=== PATIENT | female | born 1990 ===

== ENCOUNTER 2025-02-02 13:01 | Emergency (ER) | payer BC, SELFPAY ==
[2025-02-02 13:03] VITALS: BP 129/88; PULSE 101; RESP 18; TEMP 36.7; O2SAT 99
--- OUTSIDE RECORDS SUMMARY | 2025-02-02 13:03 | XMS_ITS | Clinical Summary ---
Author Organization [facility] Address [address] [place] [address] Care Team Providers Care Dope Pourer Name Role Phone Christa Swanson MD Primary Care Provider [phone] Christa Swanson MD Unavailable [phone] Allergies Active Allergy Reactions Criticality Noted Date Comments Latex Rash Low 07/27/2013 Sulfa Antibiotics Nausea Low 07/27/2013 Medications ALPRAZolam (XANAX) 0.5 MG tablet Take 0.5 mg by mouth as needed for anxiety Active Active Problems Problem Noted Date Diagnosed Date ACP (advance care planning) 08/06/2023 History of pulmonary embolism 09/16/2020 Atypical squamous cells of u ndetermined significance on cytologic smear of cervix (ASC-US) 03/24/2019 Overview (08/06/2023): [facility] Review: History: 12/2012: LSIL 09/2013: LSIL, COLP neg 04/2014: ASCUS, HPV- 12/2014: NILM, HPV- 01/2016: NILM 02/2019: NILM, HPV- Generalized anxiety disorder 11/24/2018 Mild episode of recurrent major depressive disor lyndsay 11/24/2018 PCOS (polycystic ovarian syndrome) 05/19/2017 Anxiety 09/10/2013 Resolved Problems Problem Noted Date Diagnosed Date Resolved Date Health Prison 08/06/2023 04/24/2024 Indication for care in labor or delivery 07/15/2018 08/06/2023 Vaginal delivery 07/15/2018 08/06/2023 Vaginal delivery 07/29/2013 07/15/2018 Uterine contractions or othe r obstetric complaints 07/27/2013 07/29/2013 Active labor 07/27/2013 07/29/2013 Immunizations Name Administration Dates Next Due DTaP, Unspecified 01/16/1994, 0,05/04/1989,1988,1988 HIB (PRP-T) 07/18/1992 Hepatitis B, Adult (Energix-B/Recombivax HB) 08/16/1997,03/15/1997,01/25/1997 Influenza Vaccine >6 months,quad, PF 08/31/2018 MMR (MMRII) 01/18/2001,02/25/1990 OPV, unspecified 01/16/1994, 0,1988,1987 TD,PF 7+ (Tenivac) 01/14/2004 TDAP Vaccine (Adacel) 05/17/2018 TDAP Vaccine (Boostrix) 06/30/2013 Family History Medical History Relation Comments Hypertension Father Diabetes Maternal Grandmother Depression Mother Hypertension Mother Other Cancer Paternal Grandmother Lung Relation Status Comments Father Maternal Grandmother Mother Paternal Grandmother Social History Tobacco Use Types Packs/Day Years Used Date Smoking Tobacco: Former Cigarettes Q uit: 08/10/2004 Passive Smoke Exposure: Past Smokeless Tobacco: Never Alcohol Use Standard Drinks/Week Comments Not Currently 0 (1 standard drink = 0.6 oz pur e alcohol) PHQ-2 Answer Date Recorded PHQ-2 Score 2 08/28/2019 Adolescent Education Answer Date Record ed Getting School Help Needed Not on file 08/06 Comments No Sex and Gender Information Value Date Recorded Sex Assigned at Not on file Legal Sex Female 4:50 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 HELPER Gender Identity Not on file Sexual Orientation Not on file Last Filed Vital Signs Vital Sign Reading Time Taken Comments Blood Pressure 116/68 08/06/2023 2:06 PM CDT Pulse 85 08/06/2023 2:06 PM CDT Temperature 37.1 C (98.7 F) 08/06/2023 2:06 PM CDT Respiratory Rate 12 08/28/2019 4:55 PM CDT Oxygen Saturation 96% 08/06/2023 2:06 PM CDT Inhaled Oxygen Concentration - - Weight 62.9 kg (138 lb 9.6 oz) 08/06/2023 2:06 P M CDT Height 156.2 cm (5' 1.5) 08/06/2023 2:06 PM CDT Body Mass Index 25.76 08/06/2023 2:06 PM CDT Plan of Treatment Health Maintenance Due Date Last Done Comments ADVANCE CARE PLANNING 1988 ANNUAL REVIEW OF HM ORDERS 1988 CT COLONOGRAPHY 1988 DEPRESSION ACTION PLAN 1988 FIT 1988 FLEX SIG 1988 sDNA (Cologuard) 1988 HEPATITIS C SCREENING 2006 PHQ-9 02/27/2020 08/28/2019 YEARLY PREVENTIVE VISIT 10/13/2022 10/13/20, 09/16/2020, 02/27/2019, Additional history exists DIABETES SCREENING 11/16/2022 11/16/2019, 0 11/16/2019, 08/10/2019, Additional history exists COVID-19 Vaccine ( season) 2024 INFLUENZA VACCINE (#1) 2024 08/31/2018 HPV TEST 02/05/2028 02/27/2019, 02/27/2019 PAP 02/05/2028 02/04/2023, 01/08, 02/27/2019, Additional history exists DTAP/TDAP/TD IMMUNIZATION (7 - Td or Tdap) 05/17/2028 05/17/2018, 06/30/2013, 01/14/2004, Additional history exists COLONOSCOPY 10/25/2033 10/25/2023 COLORECTAL CANCER SCREENING 10/25/2033 ZOSTER IMMUNIZATION (1 of 2) 2038 HEPATITIS B IMMUNIZATION Completed 997, 03/15/1997, 01/25/1997 HIV SCREENING Completed 12/01/2017, 12/13/2012 HPV IMMUNIZATION Aged Out No longer e ligible based on patient's age to complete this topic MENINGITIS IMMUNIZATION Aged Out No l onger eligible based on patient's age to complete this topic Pneumococcal Vaccine: Pediatrics (0 to 5 Years) and At-Risk Patients (6 to 49 Years) Aged Out No longer eligible based on patient's age to complete this topic Procedures Procedure Name Priority Date/Time Associated Diagnosis Comments COLONOSCOPY - HIM SCAN Routine 10/25/2023 PAP SMEAR - HIM PATIENT REPORTED Routine 02/04/2023 HEMOGLOBIN A1C Routine 11/16/2019 9:19 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 MECHANIC HELPER Class 1 obesity due to excess calories without serious comorbidity with body mass index (BMI) of 31.0 to 31.9 in adult ABSTRACT HPV (HIM EXTERNAL RESULT) Routine 02/27/2019 HIV ANTIGEN ANTIBODY COMBO Routine 12/01/2017 from Last 3 Months or Most Recently Relevant to Health Maintenance Results * Colonoscopy - HIM Scan (10/25/2023) us Provider Outside PROCEDURES Final Result * PAP Smear - HIM Patient Reported (02/04/2023) PAP Smear - HIM Patient Reported Negative 02/04/2023 us Provider Outside LABORATORY Final Result * Hemoglobin A1c (11/16/2019 9:19 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 MECHANIC HELPER) Hemoglobin A1C 5.0 0 - 5.6 % 11/16/2019 9:38 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 MECHANIC HELPER [facility] Comment: Normal <5.7% Prediabetes 5.7-6.4% Diabetes 6.5% or higher - adopted from ADA consensus guidelines. Blood specimen (specimen) 11/16/2019 9:19 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 MECHANIC HELPER 11/16/2019 9:24 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 MECHANIC HELPER us Dalia Alford PA-C LAB - BLOOD ORDERAB LES Final Result [facility] [address] [facility] [address] [place] [address] * ABSTRACT HPV-NO CHARGE (02/27/2019) HPV Abstract See Scanned Document [facility] 02/27/2019 Narrative [facility] - 02/27/2019 Care Everywhere, [facility] us Provider Outside LAB - HIM EXTERNAL RESULT Final Result [facility] [address] [place], [place] [address] [phone] * HIV Antigen Antibody Combo (12/01/2017) HIV Antigen Antibody Combo Nonreactive Blood specimen (specimen) us Patient Reported LAB - BLOOD ORDERABLES Final Re sult from Last 3 Months or Most Recently Relevant to Health Maintenance Insurance NONE (Work) [address] [id number] [facility] Care Teams Dope Pourer Relationship Specialty Start Date End Date Christa Swanson MD [address] [facility] [address] [place] [address] PCP - General Family Medicine 07/21/23 Christa Swanson MD [address] [facility] [address] [place] [address] Assigned PCP 08/14/23
--- OUTSIDE RECORDS SUMMARY | 2025-02-02 13:03 | XMS_ITS | Encounter Summary ---
Author Organization [facility] Address [address] [place] [address] Care Team Providers Care Automation Machine Builder Name Role Phone Christa Swanson MD Primary Care Provider [phone] Christa Swanson MD Unavailable [phone] Encounter Details Date Type Department Care Team (Late st Contact Info) Description 08/11/2023 MyC Medical Advice [facility] [address] [place] [id number] Christa Swanson MD [address] [place] [address] [address] [place] [address] Social History Tobacco Use Types Packs/Day Years [...] on file 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 Unable to assess 08/06/2023 1:37 PM CDT documented as of this encounter Miscellaneous Notes * Telephone Encounter - Christa Swanson MD - 08/13/2023 11:29 AM CDT See mychart message from patient, please send ct report to her canvas marker. documented in this encounter Plan of Treatment Not on file documented as of this encounter Visit Diagnoses Not on filedocumented in this encounter Additional Health Concerns Assessment Noted Time PHQ-9 Depression Total Score: 14 019 6:03 PM CDT documented as of this encounter Care Teams Automation Machine Builder Relationship Specialty Start Date End Date Christa Swanson MD [address] [address] PCP - General Family Medicine 07/21/23 Christa Swanson MD [address] [address] Assigned PCP 08/14/23 documented as of this encounter
--- OUTSIDE RECORDS SUMMARY | 2025-02-02 13:03 | XMS_ITS | Clinical Summary ---
Author Organization [facility] Address [address] [place] [address] Care Team Providers Care Machine Skiver Name Role Phone Sabiha Damico MD Primary Care Provider Source Comments You are receiving this document as you are listed as the primary care provider,follow-up provider, or the patient has been referred to you for consultation.This is in compliance with the Medicare andMedicaid EHR Incentive Program,which states Providers who transition their patient to another setting of careor provider of care or refers their patient to another provider of care shouldprovide summary care record for each transition of care or referral. [facility] Allergies Active Allergy Reactions Criticality Noted Date Comments Latex Low 02/04/2009 PN: LW Reaction: swelling, irritation- just slight irritation per patient report. Sulfa Antibiotics 02/12/2003 PN: LW Reaction: GI Upset Sulfasalazine Nausea Low 07/27/2013 Medications * This document contains information received from the source organization and may not represent a complete record from that organization. drug not in computer Active Multiple Vitamins-Minerals (EQ MULTIVITAMINS ADULT GUMMY OR) Acti ve Ferrous Sulfate 324 (65 Fe) MG TBEC Take 325 mg by mouth two times a day. Active Docusate Sodium 100 MG Take 100 mg by mouth. 07/17/20 18 Active acetaminophen (TYLENOL) 500 MG tablet Take 2 Tablets by mouth 4 times daily as needed for Pain. Maximum acetaminophen dose is 4000 mg in 24 hours 100 Tablet 11 08/10/20 19 Active Ascorbic Acid (VITAMIN C-JOE HIPS) 1000 MG tablet Take 1,000 mg by mouth daily. Active Nutritional Supplements (VITAMIN D MAINTENANCE OR) Acti ve medroxyPROGESTERo ne (PROVERA) 10 MG tabletIndications :PCOS (polycystic ovarian syndrome) (HRC) Take 1 tab daily for 5-10 days if you do not get your period monthly. 10 Tablet 11 09/16/20 20 Active Additional Information Patient not taking.Reported on 10/13/2021 ALPRAZolam (XANAX) 0.5 MG tabletIndications :Anxiety (HRC) Take 1 Tablet by mouth at bedtime as needed for Anxiety. 30 Tablet 09/16/20 20 Active Active Problems Problem Noted Date Diagnosed Date History of pulmonary embolism 09/16/2020 Atypical squamous cells of u ndetermined significance on cytologic smear of cervix (ASC-US) 03/24/2019 Overview (03/24/2019): [facility] Review: History: 12/2012: LSIL 09/2013: LSIL, COLP neg 04/2014: ASCUS, HPV- 12/2014: NILM, HPV- 01/2016: NILM 02/2019: NILM, HPV- Generalized anxiety disorder 11/24/2018 Mild episode of recurrent major depressive disor lyndsay 11/24/2018 PCOS (polycystic ovarian syndrome) 05/19/2017 Anxiety 09/10/2013 Resolved Problems Problem Noted Date Diagnosed Date Resolved Date On continuous oral anticoagulation 08/14/2019 09/16/2020 Acute pulmonary embolism 08/09/201907/2020 Back pain affecting pregnanc y in third trimester 07/14/2018 08/31/2018 Abnormal glucose complicating 05/31/2018 08/31/2018 Antepartum anemia 05/31/2018 09/16/2020 Supervision of other normal , antepartum 02/10/2018 08/31/2018 Contraceptive surveillance 09/28/2013 0 01/08/2016 , supervision, normal, first 02/10/2013 09/10/2013 Dysmenorrhea 05/02/2004 09/15/2005 Overview (06/11/2016): LW Onset: [id number] Immunizations Immunization Administration Dates Next Due DTP 01/16/1994, 0,05/04/1989,1988,1988 DTaP, Unspecified Formulation 01/16/1994 ,03/09/1990,05/04/1989,1988,1988 HepB Adult (Engerix-B, 20+ y rs, 3 dose series) 08/16/1997,03/15/1997,01/25/1997 Hib (ActHIB) 07/18/1992 Influenza IIV4 (Quadrivalent ) 0.5mL (46144) 08/31/2018 MMR 01/18/2001,02/25/1990 OPV, Trivalent (Orimune or tOPV) 994,03/09/1990,1988,1987 OPV, Unspecified Formulation 01/16/1994, 03/09/1990,1988,1987 TDAP (BOOSTRIX) 06/30/2013 Td 01/14/2004 Td (7+ yrs) 01/14/2004 Tdap 05/17/2018 Family History Medical History Relation Name Comments Hypertension Father Hypertension Mother Alzheimer's Maternal Grandmother Dementia Maternal Grandmother Diabetes Maternal Grandmother Heart Disease Paternal Grandfather Cancer Paternal Grandmother Cancer, Lung Paternal Grandmother Relation Name Status Comments Father Alive Mother Alive Brother Alive Maternal Grandfather Alive Maternal Grandmother Paternal Grandfather Paternal Grandmother Social History Tobacco Use Types Packs/Day Years Used Date Smoking Tobacco: Former Cigarettes Smokeless Tobacco: Never Tobacco Cessation:Counseling Given: No Comments:Smoking History Packs/day: 1/2. 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 Not on file Not on file Not o n file Last Filed Vital Signs Vital Sign Reading Time Taken Comments Blood Pressure 112/71 10/13/2021 7:37 AM COOLING SYSTEM OPERATOR Pulse 78 10/13/2021 7:37 AM COOLING SYSTEM OPERATOR Temperature 36.7 C (98.1 F) 08/06/2020 12:24 PM CDT Respiratory Rate 16 08/06/2020 12:24 PM CDT Oxygen Saturation 99% 08/06/2020 12:24 PM CDT Inhaled Oxygen Concentration - - Weight 66.2 kg (146 lb) 10/13/2021 7:37 AM COOLING SYSTEM OPERATOR Height 158 cm (5' 2.21) 10/13/2021 7:37 AM COOLING SYSTEM OPERATOR Body Mass Index 26.53 10/13/2021 7:37 AM COOLING SYSTEM OPERATOR Plan of Treatment Health Maintenance Due Date Last Done Comments Hep C Screening (Preventive Services) 1988 Adult Preventive Visit 10/13/2023 , 09/16/2020, 02/27/2019, Additional history exists Cervical Cancer Screening 02/28/20242018, 02/27/2019, 01/07/2016, Additional history exists COVID-19 Vaccine ( season) 2024 Influenza (#1) 2024 08/31/2018 DTaP/Tdap/Td (7 - Tdap) 05/17/2028 05/17/20 18, 06/30/2013, 01/14/2004, Additional history exists Zoster/Shingles (1 of 2) 2038 Hib Completed 07/18/1992 IPV (Polio) Completed 01/16/1994, 01/06, 03/09/1990, Additional history exists HepB Completed 08/16/1997, 06/1997, 01/25/1997 HIV Screening (Preventive Services) Completed 12/01/2017, 12/13/2012 HPV Vaccine Aged Out No longer eligi ble based on patient's age to complete this topic HepA Aged Out No longer eligi ble based on patient's age to complete this topic MCV4 Aged Out No longer eligi ble based on patient's age to complete this topic Meningococcal B Aged Out No longer el igible based on patient's age to complete this topic Pneumococcal Aged Out No longer eligi ble based on patient's age to complete this topic Procedures Procedure Name Priority Date/Time Associated Diagnosis Comments CYTOLOGY (PAP) Routine 02/27/2019 1:56 PM CDT Pap smear for cervical cancer screening HIV-1 P24 AND HIV-1/HIV-2 ANTIBODIES Routine 12/01/2017 8:41 AM COOLING SYSTEM OPERATOR Screening examination for venereal disease from Last 3 Months or Most Recently Relevant to Health Maintenance Results * PAP Test (02/27/2019 1:56 PM CDT) Case Report Pap Case: [id number] Authorizing Provider: Prema Del Rosario, Collected: 02/27/2019 01:56 PM OPAL RED Ordering Location: [facility] Received: 02/27/2019 02:25 PM Services-PROOF COIN COLLECTOR First Screen: Tenisha Macias CT (ASCP) Specimen: Pap Test, Routine, Cervix/Endocervix 03/03/2019 2:25 PM CDT [facility] Pap Specimen Adequacy Satisfactory for evaluation, endocervical/zendejas sformation zone component absent. 03/03/2019 2:25 PM CDT [facility] Pap Interpretation Negative for intraepithelial lesion or malignancy (NILM). 03/03/2019 2:25 PM CDT [facility] at 1425 CDT Gross Description The specimen is received in SurePath fixative and properly labeled. 1 Pap-stained SurePath slide is prepared. 03/03/2019 2:25 PM CDT [facility] Pap Disclaimer The Pap test is a screening test designed to aid in the detection of cervical cancer and its precursor lesions. It is not a diagnostic procedure and should not be used as the sole means of detecting cervical cancer. Both false-positive and false-negative reports may occur. 03/03/2019 2:25 PM CDT [facility] Embedded Images 9 2:25 PM CDT [facility] Other Specimen Type ENTIRE ENDOCERVIX / Unknown 02/27/2019 1:56 PM CDT 02/27/2019 2:25 PM CDT Comment:LMP: Patient's last menstrual period was 02/19/2019 (exact date). Prema Del Rosario APRN, CNP LAB PATHOLOGY Fi nal Result [facility] [address] * LAB HIV-1 p24 AND HIV-1/HIV-2 ANTIBODIES (12/01/2017 8:41 AM COOLING SYSTEM OPERATOR) HIV-1 p24 Ag and HIV-1/HIV-2 Ab Nonreactive Nonreactive PN SOFT 12/01/2017 8:41 AM COOLING SYSTEM OPERATOR 12/01/2017 12:57 PM COOLING SYSTEM OPERATOR Narrative PN SOFT - 12/01/2017 3:11 PM COOLING SYSTEM OPERATOR Performed at [facility] [id number] [place] [address] CLIA number [id number] us Prema Del Rosario AMBULATORY TECHNOLOGIST, NETWORK CONTRACT MANAGER LAB_1 Fi nal Result PN SOFT [address] [place] [address] from Last 3 Months or Most Recently Relevant to Health Maintenance Insurance BCBS OUT OF STATE Advance Directives * Full Code (Latest Code Status on File) Date Activated Date Inactivated Comments 08/09/2019 8:17 PM 08/10/2019 8:13 PM Care Teams Machine Skiver Relationship Specialty Start [place] [address] [place] [address] PCP - General 02/09/11
--- OUTSIDE RECORDS SUMMARY | 2025-02-02 13:04 | XMS_ITS | Clinical Summary ---
Author Organization [facility] Address [address] [place] [address] Care Team Providers Care Burlap Roll Coverer Name Role Phone Brandie Naranjo DO Primary Care Provider [phone] Allergies Active Allergy Reactions Criticality Noted Date Comments Latex Rash Low 07/27/2013 Sulfasalazine Nausea Only Low 07/27/2013 Medications NUVARING vaginal ring PLEASE SEE ATTACHED FOR DETAILED DIRECTIONS 4 9 Active multivitamin chew Active escitalopram oxalate (LEXAPRO) 10 mg tabletIndicatio ns:Generalized anxiety disorder,Mild episode of recurrent major depressive disorder TAKE ONE TABLET BY MOUTH EVERY MORNING 90 tablet 9 Active Active Problems Problem Noted Date Diagnosed Date PCOS (polycystic ovarian syndrome) 11/24/2018 Mild episode of recurrent major depressive disor lyndsay 11/24/2018 Generalized anxiety disorder 11/24/2018 Immunizations Immunization Administration Dates Next Due DTP 01/16/1994, 0,05/04/1989,1988,10/09 HIB PRP-T (ActHIB,Hiberix) 07/18/1992 Hepatitis B (Adult) 08/16/1997,03/15/1997,1996 Influenza, IIV4 08/31/2018 MMR 01/18/2001,02/25/1990 Oral Polio Vaccine 01/16/1994,03/09/1990, 989,1988 Td (Age >=7 Years) 01/14/2004 Tdap 05/17/2018,06/30/2013 Social History Tobacco Use Types Packs/Day Years Used Date Smoking Tobacco: Never Smokeless Tobacco: Never Tobacco Cessation:Counseling Given: Yes Alcohol Use Standard Drinks/Week Comments Yes 0 (1 standard drink = 0.6 oz pur e alcohol) occassional PHQ-2 Answer Date Recorded PHQ-2 Score 2 01/24/2019 Comments No Sex and Gender Information Value Date Recorded Sex Assigned at Not on file Legal Sex Female 11:41 AM BUTTERMAKER Gender Identity Not on file Sexual Orientation Not on file Obstetrics History Last Filed Vital Signs Vital Sign Reading Time Taken Comments Blood Pressure 100/70 12/15/2018 11:24 AM BUTTERMAKER Pulse 66 12/15/2018 11:24 AM BUTTERMAKER Temperature - - Respiratory Rate - - Oxygen Saturation - - Inhaled Oxygen Concentration - - Weight 69.5 kg (153 lb 4.8 oz) 12/15/2018 11:24 AM BUTTERMAKER Height 157.5 cm (5' 2) 12/15/2018 11:24 AM BUTTERMAKER Body Mass Index 28.04 12/15/2018 11:24 AM BUTTERMAKER Plan of Treatment Health Maintenance Due Date Last Done Comments HIV for age 15-65 2003 Hepatitis C screening for age 18-79 2006 Pap test for age 21-65 2009 BMI (ht and wt on same day) for age 18+ 12/15/2019 12/15/2018, 11/24/2018 Depression screening for age 12+ 01/21/2020 01/20/2019, 12/15/2018, 11/25/2018, Additional history exists COVID-19 vaccine series (2023- season) 2024 Influenza Vaccine (#1) 2024 08/31/2018 Tetanus booster 05/17/2028 05/17/2018, 06/09, 01/14/2004 Tdap Completed 05/17/2018, 06/30/2013 Pneumococcal series for age 6-49 Aged Out No longer eligible based on patient's age to complete this topic Insurance [facility] Care Teams Burlap Roll Coverer Relationship Specialty Start [place] [address] [place] [address] PCP - General Family Practice 02/07/19
--- OUTSIDE RECORDS SUMMARY | 2025-02-02 13:04 | XMS_ITS | Data Portability ---
Author Organization [facility], [facility] Address [address] [place] [address] Care Team Providers Care Procurement Analyst Name Role Phone [facility] Primary Care Provid er Assessment No assessment recorded. Plan of Treatment Reminders Order Date Submit Date Provider Last Modified By Organization Details Last Modified Time Details Appointments None recorded. Lab None recorded. Referral None recorded. Procedures None recorded. Surgeries None recorded. Imaging XR, kidney + ureter + bladder [id number] [email or web address] Not available 15:07:35 Medication Orders None recorded. Patient TargetsNo targets recorded. Patient InstructionsNo instructions recorded. Reason for Referral None Reported. Problems Name Problem SNOMED Code Status Onset Date Resolution Date Notes Provider Name and Address Organization Details Recorded Time Kidney stone [id number] Active 023 Natanael Bartlett MD [address] [place] [address],[address], [place], [address] , [facility] 09/20/2023 16:32:28 Problem Notes None recorded. Medical Equipment None Reported. Allergies No known drug allergies Medications Name Sig Start Date Stop Date Status Note LastModified by Organization Details LastModified Time tretinoin 0.025 % topical cream APPLY A THIN LAYER TO FULL FACE 2 NIGHTS PER WEEK, INCREASE NIGHTLY TOLERATED , FOLLOW WITH [facility] ER 09/20 completed Not Available Not Available Not Available prednisone 20 mg tablet TAKE ONE TABLET BY MOUTH EVERY DAY 09/20 completed Not Available Not Available Not Available alprazolam 0.5 mg tablet TAKE ONE TABLET BY MOUTH EVERY DAY NEEDED FOR ANXIETY ATTACK active Not Available Not Available No t Available neomycin-po lymyxin-dex ameth 3.5 mg/mL-10,00 0 unit/mL-0.1 % eye drops Use 1 drop into the eye(s) every 8 hours for 5 days* 09/20 completed Not Available Not Available Not Available Vitals Date Recorded Body height Body mass index (BMI) Body weight Provider Name and Address Organization Details Last Updated DateTime 09/20/2023 154.94 cm 25.5 kg/m2 82512.97 g Marlon Grey [facility] 09/20/2023 16:01:07 Social History Question Answer Notes LastModified by Organizat ion Details LastModified Time Tobacco Smoking Status Former Smoker Marlon Grey [facility], [facility] 09/20/2023 16:02:14 What Is Your Level Of Alcohol Consumption? Moderate Information not available 09/20/2023 What Is Your Level Of Caffeine Consumption? Moderate Information not available 09/20/2023 When Did You Quit Smoking? 1-5yearssincel astcigarette Information not available 09/20/2023 What Was The Date Of Your Most Recent Tobacco Screening? 09/20/2023 Information not available 09/20/2023 Sex: Unknown Functional Status None recorded. Mental Status None recorded. Family History Relationship Description Onset Age of this Age Resolved Age Notes LastModified by Organization Details LastModified Time Father Kidney stone [email or web address] Not avail able 09/20/2023 16:01:52 Maternal Grandmother Kidney stone [email or web address] Not available 09/20/2023 16:01:52 Medical History Condition Response Other N High Blood Pressure N Kidney Stones Y Lung Disease N Depression N GERD/Acid Reflux N Sexually Transmitted Infection N Diabetes N Bleeding Disorder N Cancer N High Cholesterol N Heart Disease N Gynecological History Statement/Question Response Sexually Active? Y Obstetrics History GPAL:G 2 P 0 0 0 0 Past Encounters Encounter ID Performer Location Encounter Start Date Encounter Closed Date Diagnosis/Indication Diagnosis SNOMED-CT Code Diagnosis ICD10 Code Diagnosis Note [id number] Natanael Bartlett MD [facility] [address] [place] [address] 09/20/2023 15:53:38 09/22/2023 11:50:29 Kidney stone 36238085 N20.0 - Asymptomat ic, approximat paulo 5 to 6 mm stone in the anterior mid right kidney that is possibly intraparen chymal.-Gi beny the location, I did not recommend surgery at this time, especially given the fact that she does not have any symptoms. I did recommend close radiograph ic surveillan ce with another KUB x-ray in 6 months. We also discussed the possibilit y of metabolic evaluation -Return to clinic 6 months with KUB, sooner as needed Health Concerns Section Related Observation LastModified by Organization Detai ls LastModified Time None Recorded Concern Status LastModified by Organization Details LastModified Time None Recorded Advance Directives Directive None Recorded Payers Encounter Date Sequence Insurance Name Policy Number Policy Parsons Covered Member ID Parsons Member ID Guarantor Name 09/20/2023 1 GEO-ANNETTA: GEO LITTLEJOHN (PPO) [id number] Sacha A Lendway [id number] Cally A [employer] Notes Date Note Type Note Provider Name and Address Organization Details Recorded Time 09/20/2023 text/html New patient refe rred for kidney stone. Primary complaint is chronic pelvic pain for the past 1 to 2 years. She had a pelvic ultrasound that was normal. She has consultation pending with [facility]. No prior kidney stones. No history of flank pain. I reviewed the most recent clinic notes from Dr. Swanson with [facility] physicians dated 08/06/2023. I reviewed the CT scan images and report from [facility] dated 08/11/2023. She has an incidental 7 mm nonobstructing stone in the right anterior mid kidney. The stone appears to be intraparenchymal. It is also visible on the wound nurse images and appears smaller than 7 mm. Natanael Bartlett MD [address], [place], [address], [facility] 09/20/2023 16:34:02 OBGyn Episode No OBEpisode recorded.
[2025-02-02 14:44] LABS: Appearance Urine Clear (Clear); Bilirubin Urine Negative (Negative); Blood Urine Negative (Negative); Color Urine Yellow (Yellow); Glucose Urine Negative (Negative); Ketones Urine Negative (Negative); Leukocyte Esterase Urine Negative (Negative); Nitrite Urine Negative (Negative); Protein Urine Negative (Negative); Specific Gravity Urine <= 1.005 (1.000-1.030); Urobilinogen Urine 0.2 (0.2-1.0)
[2025-02-02 14:47] LABS: Ur HCG Qualitative* Negative (Negative)
--- NOTE | 2025-02-02 14:49 | CRLHL7_ITS ---
For Patients: As a result of the Cures Act, medical imaging exams and procedure reports are released immediately into your electronic medical record. You may view this report before your referring provider. If you have questions, please contact your health care provider. INDICATION: Right abdominal pain. TECHNIQUE: CT abdomen and pelvis acquired with 69 cc of Isovue 370 IV contrast. COMPARISON: None. FINDINGS: Lower chest: Unremarkable. Liver: Unremarkable. Spleen: Unremarkable. Pancreas: Unremarkable. Gallbladder and bile ducts: No calcified stones or biliary ductal dilatation. Kidneys: Nonobstructing 5 mm right renal stone. No ureteral stones or hydronephrosis. No suspicious lesion. Adrenal glands: Unremarkable. GI tract: Mild circumferential thickening and pericolonic stranding of the distal ascending colon near the hepatic flexure, for example on axial image 49 of series 2. There is a possible small posteriorly directed diverticula. No pericolonic fluid collection. No free intraperitoneal gas. No bowel obstruction. Normal appendix. Lymph nodes: No pathologic lymphadenopathy. Vascular structures: Unremarkable. Pelvic Organs: Collapsing cyst in the right ovary measures 15 mm. Trace pelvic free fluid. Uterus, adnexal regions and bladder as imaged is otherwise unremarkable. Bones: No acute or suspicious osseous abnormality. IMPRESSION: 1. Colitis of the distal ascending colon near the hepatic flexure may reflect acute right-sided diverticulitis. However, other etiologies for colitis are not entirely excluded. No evidence of abscess or pippa perforation. 2. Nonobstructing right nephrolithiasis. Dictated by Zeb Adams MD @ 02/02/2025 3:43:29 PM Please note that all CT scans at this facility use dose modulation, iterative reconstruction, and/or weight-based dosing when appropriate to reduce radiation dose to as low as reasonably achievable. Dictated by: Zeb Adams MD @ 02/02/2025 15:43:39 (Electronically Signed)
[2025-02-02 14:54] LABS: RBC Urine 0-2 (0-2); WBC Urine 0-2 (0-5)
[2025-02-02 14:55] LABS: Bacteria Urine Many; Squamous Epithelial Cell Urine Few (None-Few)
--- NOTE | 2025-02-02 15:03 | ED_ITS ---
HPI - General Adult General Date Seen: 02/02/25 Chief complaint: Abdominal Pain Stated complaint: Abdominal pain Time Seen by Provider: 02/02/25 14:31 History of Present Illness HPI narrative: Patient is a 34-year-old woman here for evaluation of abdominal pain. She says yesterday she had some generalized abdominal pain that she related to cramping, she is expecting her period this week and she often gets some constipation cramping in a couple days before she starts her period. However, today the cramping is gone and she has residual localized right-sided abdominal pain in the right mid upper abdomen. She denies nausea vomiting, had some constipation but took a laxative yesterday and that is improved. No diarrhea or bloody stools. No urinary symptoms. She has had a normal appetite today. She has had a couple of pregnancies, denies other gynecologic history. No abdominal surgeries. No fevers. She does not smoke or drink. Denies other medical history. No specific suspicion of . Related Data Home Medications ?Medication ?Instructions ?Recorded ?Confirmed alprazolam 0.5 mg tablet 0.5 mg PO DAILY PRN anxiety attack 02/02/25 02/02/25 bupropion HCl 150 mg tablet,12 hr 150 mg PO DAILY 02/02/25 02/02/25 sustained-release (Wellbutrin SR) tretinoin 0.025 % topical cream applic topical 02/02/25 Allergies Allergy/AdvReac Type Severity Reaction Status Date / Time Sulfa (Sulfonamide Allergy Unknown Verified 04/03/23 09:22 Antibiotics) Review of Systems Status of ROS: Reports: 10 or more systems reviewed and unremarkable except as noted in History and below [facility] Social History Smoking Status: Former smoker What tobacco products do you use: cigarettes Smoking quit date/years: <= 15 years ago Do you use any of these nicotine containing products: None How often do you have a drink containing alcohol: 2-4 times a month AUDIT-C Alcohol total score: 2 Non-prescribed substance use: denies use Exam Narrative: Exam Narrative: Vital signs reviewed In general, alert, nontoxic middle-age woman. She looks comfortable. Head: Normocephalic, atraumatic. Eyes: Sclera clear. Pupils equal and reactive. ENT: Mucous membranes moist. Neck: Supple without adenopathy. Heart: Regular rate and rhythm without murmur. Lungs: Clear. No increased work of breathing, crackles or wheezes. Abdomen: Abdomen is soft, nondistended. She has localized tenderness primarily in the right mid abdomen, she has a negative Davis sign, she does not have tenderness exactly over McBurney's point nor does she have any pelvic tenderness. She does not have any rebound guarding or rigidity. Left abdomen is entirely nontender. Extremities: Well perfused, pulses intact. No significant edema. Neurologic: Alert, conversant. Speech fluent, face symmetric. Moves all extremities equally. Skin: Warm, dry well perfused. Affect: Normal. Const: Vital Signs, click to edit/add: Vital Signs - 24 hr 02/02/25 13:03 02/02/25 15:30 Temperature 98.0 F 96.8 F L Pulse Rate [Pulse Oximeter] 101 H 79 Respiratory Rate 18 18 Blood Pressure [Ri ght Upper Arm] 129/88 124/70 Pulse Oximetry 99 98 Oxygen Delivery Me thod Room Air Room Air Course Course ED Course: A UA and UPT was ordered in triage. The urinalysis shows bacteria but otherwise is negative, 0-2 red cells 0-2 white cells. test is negative. Ov bonill her abdominal exam is fairly benign, story is somewhat suggestive of appendicitis although exam is less definitive, she says she has had a normal appetite today and had a protein bar in the waiting room prior to coming in. Other diagnostic considerations would be biliary colic or cholecystitis, pancreatitis, diverticulitis, ovarian cyst, kidney stone among others. Doubt ectopic given negative test UTI given the negative UA. Overall, given the absence of significant tenderness over the gallbladder negative Davis's, I think CT scan will be the most efficient initial imaging test. Labs and CT are pending at this time. She declines the need for anything for pain at this time. Labs reviewed and reassuring, white blood cell count mildly elevated at 13. I reviewed her CT scan, I noted small right ovarian cyst but no significant free fluid, I did not see evidence of appendicitis, gallbladder looked normal. Radiology read is of some thickening of the hepatic flexure and possibly a small diverticuli there, they think this most likely represents diverticulitis although other causes of colitis are not ruled out. In discussing this with the patient, she says she actually had been having some pelvic pain awhile ago, she said they ended up doing a colonoscopy as her grandma has a history of polyps. She says they noted diverticulosis but no other acute findings. As such, I think is more likely this represents diverticulitis, but discussed with her she is not improving she should see GI again. Otherwise, primary care follow-up next week, I prescribed Augmentin. Discussed reasons to return such as worsening pain, fevers, chills, vomiting. Vital Signs Vital signs: Initial Vital Signs Temperature 98.0 F 02/02/25 13:03 Temperature Source Temporal Artery Scan 02/02/25 13:03 Pulse Rate 101 H 02/02/25 13:03 Pulse Rhythm Regular 02/02/25 13:03 Respiratory Rate 18 02/02/25 13:03 Blood Pressure 129/88 02/02/25 13:03 Blood Pressure Mean 101 02/02/25 13:03 Blood Pressure Position Standing 02/02/25 13:03 Pulse Oximetry 99 02/02/25 13:03 Oxygen Delivery Method Room Air 02/02/25 13:03 Vital Signs Temperature 98.0 F 02/02/25 13:03 Pulse Rate 101 H 02/02/25 13:03 Respiratory Rate 18 02/02/25 13:03 Blood Pressure 129/88 02/02/25 13:03 Pulse Oximetry 99 02/02/25 13:03 Oxygen Delivery Method Room Air 02/02/25 13:03 Temperature 96.8 F L 02/02/25 15:30 Pulse Rate 79 02/02/25 15:30 Respiratory Rate 18 02/02/25 15:30 Blood Pressure 124/70 02/02/25 15:30 Pulse Oximetry 98 02/02/25 15:30 Oxygen Delivery Method Room Air 02/02/25 15:30 Medications Administered Medications: Discontinued Medications Generic Name Dose Route Start Last Admin Trade Name Freq PRN Reason Stop Dose Admin Acetaminophen 1,000 mg 02/02/25 14:49 02/02/25 15:24 Acetaminophen 500 Mg Tablet PO 02/02/25 14:50 1,000 mg ONCE ONE Administration Sodium Chloride 500 mls @ 500 mls/hr 02/02/25 14:49 02/02/25 16:07 0.9 % Sodium Chloride 500 Ml IV 02/02/25 15:48 Infused .Q1H ONE Infusion Medical Decision Making Lab Data Lab results reviewed: Yes I reviewed the patient's lab results Labs: Lab Results 02/02/25 02/02/25 Range/Units 14:35 15:00 WBC 13.41 H (4.50-11.00) K/uL RBC 4.30 (4.00-5.20) m/uL Hgb 13.3 (12.0-16.0) gm/dL Hct 39.0 (33.0-51.0) % MCV 91 (80-100) fL MCH 31 (26-34) pg MCHC 34 (32-36) gm/dL RDW Coeff of Garrett 12.3 (11.5-15.5) % Plt Count 160 (140-440) K/uL Neut % (Auto) 81.7 H (42.0-72.0) % Lymph % (Auto) 9.5 L (20-44) % Ellsworth % (Auto) 7.3 (0.0-11.0) % Eos % (Auto) 0.4 (0.0-7.0) % Baso % (Auto) 0.1 (0.0-3.0) % Neut # (Auto) 11.00 H (1.7-7.0) K/uL Lymph # (Auto) 1.30 (0.90-2.90) K/uL Ellsworth # (Auto) 1.00 H (0.00-0.90) K/UL Eos # (Auto) 0.10 (0.00-0.50) K/uL Baso # (Auto) 0.00 (0.00-0.30) K/uL Abs Immat Gran (auto) 0.10 (0.00-0.30) K/uL Imm/Tot Granulo (auto) 1.0 % Sodium 137 (135-149) mmol/L Potassium 4.3 (3.6-5.1) mmol/L Chloride 105 (96-114) mmol/L Carbon Dioxide 25 (20-32) mmol/L Anion Gap 7 (7-15) mEq/L BUN 19 (5-24) mg/dL Creatinine 0.7 (0.5-1.5) mg/dL Estimated GFR 115 ml/min Glucose 99 (60-115) mg/dL Calcium 9.1 (8.4-10.6) mg/dL Total Bilirubin 0.9 (0.1-1.5) mg/dL Direct Bilirubin 0.5 (0.0-0.5) mg/dL AST 33 (12-35) U/L ALT 16 (4-35) U/L Alkaline Phosphatase 27 L (40-150) U/L C-Reactive Protein 0.9 (0.5-1.0) mg/dL Total Protein 7.3 (6.0-8.3) g/dL Albumin 4.6 (3.3-5.0) g/dL Urine Color Yellow (Yellow) Urine Appearance Clear (Clear) Urine pH 6.0 (5.0-8.5) Ur Specific Cl[place] <= 1.005 (1.000-1.030) Urine Protein Negative (Negative) Urine Glucose (UA) Negative (Negative) Urine Ketones Negative (Negative) Urine Blood Negative (Negative) Urine Nitrite Negative (Negative) Urine Bilirubin Negative (Negative) Urine Urobilinogen 0.2 (0.2-1.0) Ur Leukocyte Esterase Negative (Negative) Urine RBC 0-2 (0-2) Urine WBC 0-2 (0-5) Ur Squamous Epith Cells Few (None-Few) Urine Bacteria Many A (None) Urine HCG, Qual Negative (Negative) Imaging Data CT scan - abdomen: Attestation: I have reviewed the pertinent imaging results. Radiologist's impression: [place] [address] Diagnostic Imaging Report Patient: Cally Jewell MR#: [id number] : 1990 Acct:[id number] Loc: ED Service Date: 02/02/[address]: Ordering Physician: Jannet Stanford M.D. Date of Service: 02/02/25 Procedure(s): CT abdomen pelvis w con Accession Number(s): [id number] cc: Jannet Stanford M.D.; Provider,Not a Local~ For Patients: As a result of the Century Cures Act, medical imaging exams and procedure reports are released immediately into your electronic medical record. You may view this report before your referring provider. If you have questions, please contact your health care provider. INDICATION: Right abdominal pain. TECHNIQUE: CT abdomen and pelvis acquired with 69 cc of Isovue 370 IV contrast. COMPARISON: None. FINDINGS: Lower chest: Unremarkable. Liver: Unremarkable. Spleen: Unremarkable. Pancreas: Unremarkable. Gallbladder and bile ducts: No calcified stones or biliary ductal dilatation. Kidneys: Nonobstructing 5 mm right renal stone. No ureteral stones or hydronephrosis. No suspicious lesion. Adrenal glands: Unremarkable. GI tract: Mild circumferential thickening and pericolonic stranding of the distal ascending colon near the hepatic flexure, for example on axial image 49 of series 2. There is a possible small posteriorly directed diverticula. No pericolonic fluid collection. No free intraperitoneal gas. No bowel obstruction. Normal appendix. Lymph nodes: No pathologic lymphadenopathy. Vascular structures: Unremarkable. Pelvic Organs: Collapsing cyst in the right ovary measures 15 mm. Trace pelvic free fluid. Uterus, adnexal regions and bladder as imaged is otherwise unremarkable. Bones: No acute or suspicious osseous abnormality. IMPRESSION: 1. Colitis of the distal ascending colon near the hepatic flexure may reflect acute right-sided diverticulitis. However, other etiologies for colitis are not entirely excluded. No evidence of abscess or pippa perforation. 2. Nonobstructing right nephrolithiasis. Dictated by Zeb Adams MD @ 02/02/2025 3:43:29 PM Please note that all CT scans at this facility use dose modulation, iterative reconstruction, and/or weight-based dosing when appropriate to reduce radiation dose to as low as reasonably achievable. Dictated by: Zeb Adams MD @ 02/02/2025 15:43:39 Discharge Plan Discharge Clinical Impression: Diverticulitis Patient Disposition: Home, Self-Care Condition: Stable Instructions: Diverticulitis (DC) Additional Instructions: Take the Augmentin as prescribed. Your symptoms may possibly be related to diverticulitis, although other causes for inflammation of the colon have not been entirely excluded. Diverticulitis at your age is not unheard of although you are fairly young. If you have persistent or recurrent symptoms, you should be seen by Gastroenterology. For worsening pain, new symptoms such as fever, vomiting, chills etcetera, return to the ER at any time. Follow-up with primary care in the next week for recheck. Prescriptions: No Action bupropion HCl [Wellbutrin SR] 150 mg tablet sustained-release 12 hr 150 mg PO DAILY tretinoin 0.025 % cream topical alprazolam 0.5 mg tablet 0.5 mg PO DAILY PRN (Reason: anxiety attack) Follow Up/Referrals: Provider,Not a Local [Primary Care Provider] - Stand Alone Forms: [employer] Info Instructions
[2025-02-02 15:11] LABS: Basophils Percent Auto 0.1 % (0.0-3.0); Eosinophils Percent Auto 0.4 % (0.0-7.0); Hemoglobin* 13.3 gm/dL (12.0-16.0); Lymphocytes Percent Auto 9.5 % (20-44); Mean Corpuscular HGB Conc 34 gm/dL (32-36); Mean Corpuscular Hemoglobin 31 pg (26-34); Mean Corpuscular Volume 91 fL (80-100); Monocytes Percent Auto 7.3 % (0.0-11.0); Neutrophils Percent Auto 81.7 % (42.0-72.0); Platelet Count* 160 K/uL (140-440); RDW Coefficient of Variation % 12.3 % (11.5-15.5); White Blood Count* 13.41 K/uL (4.50-11.00)
--- OUTSIDE RECORDS SUMMARY | 2025-02-02 15:11 | XMS_ITS | Clinical Summary ---
Author Organization [facility] Address [address] [place] [address] Care Team Providers Care Implementation Manager Name Role Phone Christa Swanson MD Primary Care Provider [phone] Christa Swanson MD Unavailable [phone] Allergies Active Allergy Reactions Criticality Noted Date [...] smear of cervix (ASC-US) 03/24/2019 Overview (08/06/2023): [facility] Review: History: 12/2012: LSIL 09/2013: LSIL, COLP neg 04/2014: ASCUS, HPV- 12/2014: NILM, HPV- 01/2016: NILM 02/2019: NILM, HPV- Generalized anxiety disorder 11/24/2018 Mild episode of recurrent major depressive disor lyndsay 11/24/2018 PCOS (polycystic ovarian syndrome) 05/19/2017 Anxiety 09/10/2013 Resolved Problems Problem Noted Date Diagnosed Date Resolved Date [facility] 08/06/2023 04/24/2024 Indication for care in labor [...] on file Legal Sex Female 4:50 AM AUDIO VIDEO TECH Gender Identity Not on file Sexual Orientation [...] 02/04/2023 HEMOGLOBIN A1C Routine 11/16/2019 9:19 AM AUDIO VIDEO TECH Class 1 obesity due to excess calories [...] Result * Hemoglobin A1c (11/16/2019 9:19 AM AUDIO VIDEO TECH) Hemoglobin A1C 5.0 0 - 5.6 % 11/16/2019 9:38 AM AUDIO VIDEO TECH [facility] Comment: Normal <5.7% Prediabetes 5.7-6.4% Diabetes 6.5% or higher - adopted from ADA consensus guidelines. Blood specimen (specimen) 11/16/2019 9:19 AM AUDIO VIDEO TECH 11/16/2019 9:24 AM AUDIO VIDEO TECH us Dalia Alford PA-C LAB - BLOOD ORDERAB LES Final Result [facility] [address] [facility] [place] [address] * ABSTRACT HPV-NO CHARGE (02/27/2019) HPV Abstract See Scanned Document [facility] 02/27/2019 Narrative [facility] - 02/27/2019 Care Everywhere, [facility] us Provider Outside LAB - HIM EXTERNAL RESULT Final Result [facility] [address] [place], [place] [address] [phone] * HIV Antigen Antibody Combo (12/01/2017) HIV Antigen Antibody Combo Nonreactive Blood specimen (specimen) us Patient Reported LAB - BLOOD ORDERABLES Final Re sult from Last 3 Months or Most Recently Relevant to Health Maintenance Insurance NONE (Work) [id number] [id number] [facility] Care Teams Implementation Manager Relationship Specialty Start Date End Date Christa Swanson MD [address] [facility] [address] [place] [address] PCP - General Family Medicine 07/21/23 Christa Swanson MD [address] [facility] [address] [place] [address] Assigned PCP 08/14/23
--- OUTSIDE RECORDS SUMMARY | 2025-02-02 15:11 | XMS_ITS | Clinical Summary ---
Author Organization [facility] Address [address] [place] [address] Care Team Providers Care Fisheries Diver Name Role Phone Brandie Naranjo DO Primary Care Provider [phone] Allergies Active Allergy Reactions Criticality Noted Date [...] on file Legal Sex Female 11:41 AM LENS ENGRAVER Gender Identity Not on file Sexual Orientation Not on file Obstetrics History Last Filed Vital Signs Vital Sign Reading Time Taken Comments Blood Pressure 100/70 12/15/2018 11:24 AM LENS ENGRAVER Pulse 66 12/15/2018 11:24 AM LENS ENGRAVER Temperature - - Respiratory Rate - - Oxygen Saturation - - Inhaled Oxygen Concentration - - Weight 69.5 kg (153 lb 4.8 oz) 12/15/2018 11:24 AM LENS ENGRAVER Height 157.5 cm (5' 2) 12/15/2018 11:24 AM LENS ENGRAVER Body Mass Index 28.04 12/15/2018 11:24 AM LENS ENGRAVER Plan of Treatment Health Maintenance Due Date [...] patient's age to complete this topic Insurance [facility] Care Teams Fisheries Diver Relationship Specialty [place] [address] [place] [address] PCP - General Family Practice 02/07/19
--- OUTSIDE RECORDS SUMMARY | 2025-02-02 15:11 | XMS_ITS | Clinical Summary ---
Author Organization [facility] Address [address] [place] [address] Care Team Providers Care Dragsaw Operator Name Role Phone Sabiha Damico MD Primary [...] for each transition of care or referral. [facility] Allergies Active Allergy Reactions Criticality Noted Date [...] smear of cervix (ASC-US) 03/24/2019 Overview (03/24/2019): [facility] Review: History: 12/2012: LSIL 09/2013: LSIL, [...] Dysmenorrhea 05/02/2004 09/15/2005 Overview (06/11/2016): LW Onset: [id number] Immunizations Immunization Administration Dates Next Due DTP 01/16/1994, 0,05/04/1989,1988,1988 DTaP, Unspecified Formulation 01/16/1994 ,03/09/1990,05/04/1989,1988,1988 HepB Adult (Engerix-B, 20+ y rs, 3 dose series) 08/16/1997,03/15/1997,01/25/1997 Hib (ActHIB) 07/18/1992 Influenza IIV4 (Quadrivalent ) 0.5mL (43852) 08/31/2018 MMR 01/18/2001,02/25/1990 OPV, Trivalent (Orimune or [...] 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, 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 Not on file Not on file Not o n file Last Filed Vital Signs Vital Sign Reading Time Taken Comments Blood Pressure 112/71 10/13/2021 7:37 AM BACK TENDER INSULATION BOARD Pulse 78 10/13/2021 7:37 AM BACK TENDER INSULATION BOARD Temperature 36.7 C (98.1 F) 08/06/2020 12:24 PM CDT Respiratory Rate 16 08/06/2020 12:24 PM CDT Oxygen Saturation 99% 08/06/2020 12:24 PM CDT Inhaled Oxygen Concentration - - Weight 66.2 kg (146 lb) 10/13/2021 7:37 AM BACK TENDER INSULATION BOARD Height 158 cm (5' 2.21) 10/13/2021 7:37 AM BACK TENDER INSULATION BOARD Body Mass Index 26.53 10/13/2021 7:37 AM BACK TENDER INSULATION BOARD Plan of Treatment Health Maintenance Due Date [...] AND HIV-1/HIV-2 ANTIBODIES Routine 12/01/2017 8:41 AM BACK TENDER INSULATION BOARD Screening examination for venereal disease from Last 3 Months or Most Recently Relevant to Health Maintenance Results * PAP Test (02/27/2019 1:56 PM CDT) Case Report Pap Case: [id number] Authorizing Provider: Prema Del Rosario, Collected: 02/27/2019 01:56 PM OPAL RED Ordering Location: [facility] Received: 02/27/2019 02:25 PM 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 03/03/2019 2:25 PM CDT [facility] Pap Interpretation Negative for intraepithelial lesion or malignancy (NILM). 03/03/2019 2:25 PM CDT [facility] at 1425 CDT Gross Description The specimen is received in SurePath fixative and properly labeled. 1 Pap-stained SurePath slide is prepared. 03/03/2019 2:25 PM CDT [facility] Pap Disclaimer The Pap test is a screening test designed to aid in the detection of cervical cancer and its precursor lesions. It is not a diagnostic procedure and should not be used as the sole means of detecting cervical cancer. Both false-positive and false-negative reports may occur. 03/03/2019 2:25 PM CDT [facility] Embedded Images 9 2:25 PM CDT [facility] Other Specimen Type ENTIRE ENDOCERVIX / Unknown 02/27/2019 1:56 PM CDT 02/27/2019 2:25 PM CDT Comment:LMP: Patient's last menstrual period was 02/19/2019 (exact date). Prema Del Rosario APRN, CNP LAB PATHOLOGY Fi nal Result [facility] [address] * LAB HIV-1 p24 AND HIV-1/HIV-2 ANTIBODIES (12/01/2017 8:41 AM BACK TENDER INSULATION BOARD) HIV-1 p24 Ag and HIV-1/HIV-2 Ab Nonreactive Nonreactive PN SOFT 12/01/2017 8:41 AM BACK TENDER INSULATION BOARD 12/01/2017 12:57 PM BACK TENDER INSULATION BOARD Narrative PN SOFT - 12/01/2017 3:11 PM BACK TENDER INSULATION BOARD Performed at [facility] [address] [place] [address] CLIA number [id number] us Prema Del Rosario SOCIAL SERVICES MANAGER, BRONC BUSTER LAB_1 Fi nal Result PN SOFT [address] [place] [address] from Last 3 Months or Most Recently Relevant to Health Maintenance Insurance BCBS OUT OF STATE Advance Directives * Full Code (Latest Code Status on File) Date Activated Date Inactivated Comments 08/09/2019 8:17 PM 08/10/2019 8:13 PM Care Teams Dragsaw Operator Relationship Specialty [place] [address] [address] [address] [address] PCP - General 02/09/11
--- OUTSIDE RECORDS SUMMARY | 2025-02-02 15:11 | XMS_ITS | Encounter Summary ---
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 documented in this encounter Plan of Treatment Not on file documented as of this encounter Visit Diagnoses Not on filedocumented in this encounter Additional Health Concerns Assessment Noted Time PHQ-9 Depression Total Score: 14 019 6:03 PM CDT documented as of this encounter Care Teams Dress Shoe Inspector Relationship Specialty Start Date End Date Christa Swanson MD [address] [address] PCP - General Family Medicine 07/21/23 Christa Swanson MD [address] [address] Assigned PCP 08/14/23 documented as of this encounter
[2025-02-02] MEDS: 0.9 % SODIUM CHLORIDE 500 ML 500 ML IV (15:23)
[2025-02-02] MEDS: ACETAMINOPHEN 500 MG TABLET 1000 MG PO (15:24)
[2025-02-02 15:25] LABS: Chloride* 105 mmol/L (96-114)
[2025-02-02 15:26] LABS: Albumin* 4.6 g/dL (3.3-5.0); Potassium* 4.3 mmol/L (3.6-5.1); Sodium* 137 mmol/L (135-149)
[2025-02-02 15:28] LABS: Blood Urea Nitrogen* 19 mg/dL (5-24); Creatinine* 0.7 mg/dL (0.5-1.5); Estimated Glomerular Filt Rate 115 ml/min
[2025-02-02 15:29] LABS: Alanine Aminotransferase* 16 U/L (4-35); Alkaline Phosphatase* 27 U/L (40-150); Anion Gap 7 mEq/L (7-15); Aspartate Amino Transferase* 33 U/L (12-35); Bilirubin Direct* 0.5 mg/dL (0.0-0.5); Bilirubin Total* 0.9 mg/dL (0.1-1.5); Calcium* 9.1 mg/dL (8.4-10.6); Carbon Dioxide* 25 mmol/L (20-32); Glucose* 99 mg/dL (60-115); Total Protein* 7.3 g/dL (6.0-8.3)
[2025-02-02 15:30] VITALS: BP 124/70; PULSE 79; RESP 18; TEMP 36; O2SAT 98
[2025-02-02 15:30] LABS: Slide Review Reflex No
[2025-02-02 15:32] LABS: C Reactive Protein* 0.9 mg/dL (0.5-1.0)
== END 2025-02-02 16:08 | disposition home or self-care (01) ==
PROVIDERS: Emergency Provider Emergency Medicine
DX: K57.92 Diverticulitis of intestine, part unspecified, without perforation or abscess without bleeding (principal)
CPT/HCPCS: 36415; 74177; 80048; 80076; 81001; 81025; 83605; 85025; 86140; 87086; 99284; 99285; A9270; J7030; Q9967